=== PATIENT | female | born 1960 ===

== ENCOUNTER → 2017-08-22 | Outpatient (CLI) | payer OTHER | LOC: RAD 12:52 | DX: Z12.31 Encounter for screening mammogram for malignant neoplasm of breast (principal) ==

== ENCOUNTER → 2021-01-23 | Outpatient (CLI) | payer OTHER | LOC: RAD 13:03 | PROVIDERS: ATTEND Internal Medicine | DX: Z12.31 Encounter for screening mammogram for malignant neoplasm of breast (principal); N64.89 Other specified disorders of breast ==